=== PATIENT | female | born 1965 | race Caucasian/White ===

== ENCOUNTER 2016-06-15 12:49 | Emergency (ER) | payer MEDICARE ==
[2016-06-15 13:06] VITALS: TEMP 97.6
[2016-06-15] MEDS ORDERED: ONDANSETRON INJ 4 MG/2 ML VIAL IV ONE (13:45)
[2016-06-15] MEDS ORDERED: SODIUM CHLORIDE 0.9% 1000ML 1,000 ML ONE (16:00)
[2016-06-15] MEDS ORDERED: PROMETHAZINE TAB (ER DISP) 25 MG TAB ONE (19:33)
[2016-06-16 09:07] VITALS: BP 115/78; O2SAT 96
--- NOTE | 2016-06-26 00:45 | CT ---
History: Abdominal pain, vomiting. CT abdomen and pelvis, with contrast: Contiguous 5 mm sections are obtained from the xiphoid process through the pubis following administration of intravenous and oral contrast agents. These images were reviewed on the console as PACS was down on this day. The ordering physician received a preliminary report immediately following the study's conclusion. Air-fluid levels are noted throughout the colon consistent with diarrhea. No focal bowel wall thickening, free or loculated fluid. The appendix is surgically absent. The stomach and small bowel are not significantly distended. No radiographic pattern is present to suggest underlying obstruction. Pelvic soft tissues are well maintained. No retroperitoneal lymphadenopathy or significant abnormality. Scattered atheromatous changes throughout a normal caliber abdominal aorta. Gallbladder is surgically absent. Homogeneous enhancement in the liver and spleen. The lung bases are free of significant disease. Abdominal wall is well-maintained with minimal umbilical hernia containing only mesenteric fat. Left greater than right lower lung atelectasis or scarring. IMPRESSION: 1. Air fluid levels throughout the colon raise the question of underlying diarrhea. No focal complication or abnormality. No obstructive change. 2. Small umbilical hernia contains only mesenteric fat. Electronically signed by: Arlene Chase MD 06/22/2016 12:38 PM [employer] SALES REPRESENTATIVE
== END 2016-06-15 19:45 | disposition home or self-care (01) ==
LOC: ER 12:49
DX: R11.10 Vomiting, unspecified (principal); R19.7 Diarrhea, unspecified; F17.200 Nicotine dependence, unspecified, uncomplicated
CPT/HCPCS: 74177; 80053; 83690; 84436; 84443; 84703; 85025; J2405; J7030; Q0169

== ENCOUNTER → 2016-09-27 | Outpatient (CLI) | payer MEDICARE | LOC: GMAJ 15:01 | PROVIDERS: ATTEND Family Medicine | DX: F32.9 Major depressive disorder, single episode, unspecified (principal); I10 Essential (primary) hypertension ==

== ENCOUNTER 2017-02-28 16:26 | Inpatient (IN) | payer MEDICARE ==
--- NOTE | 2017-02-28 16:31 | HP ---
SUPERVISING PHYSICIAN: Miguel Orozco M.D. CHIEF COMPLAINT: Upper respiratory symptoms. HISTORY OF PRESENT ILLNESS: This is a 52 year-old female patient who has had approximately 3 to 4 weeks of upper respiratory type symptoms as well as seasonal allergy symptoms. She saw her primary care physician, Dr. Miguel Orozco , last week and was given Levaquin and Prednisone. She was seen in clinic again today and her condition worsened. Her oxygen saturations with walking were 82% and she was 90% on room air at rest. She had crackles at the left base. Her white count was 16,000. She has extreme weakness and fatigue as well as coughing up grayish sputum. Dr. Orozco called me for admission to the hospital. PAST MEDICAL HISTORY: 1. Gastroesophageal reflux disease. 2. Hyperlipidemia. 3. Hypertension. 4. Migraine headaches. 5. Psoriasis. 6. Depression. 7. Hemophilia. 8. Bipolar disorder. PAST SURGICAL HISTORY: 1. Tonsillectomy. 2. Bone spur removal on nose by Dr. Strauss. 3. Exploratory laparotomy for endometriosis. 4. Appendectomy. OUTPATIENT MEDICATIONS: Per the EMR and awaiting verification. ALLERGIES: ABILIFY, PENICILLIN, CODEINE. FAMILY HISTORY: Father at age 63 from cancer. Mother at age 50 from breast cancer. SOCIAL HISTORY: She is disabled. She is single. She has no children. She is a current smoker and has been smoking since age 23. She smoked 1/2 pack of cigarettes per day. She denies any ETOH or illicit drug use. REVIEW OF SYSTEMS: GENERAL: Positive for fatigue and low grade fever. Negative for weight changes. HEENT: Positive for nasal congestion. Negative for ear pain, vision changes or sore throat. RESPIRATORY: Positive for cough, shortness of breath and wheezing. Negative for hemoptysis. CARDIOVASCULAR: Negative for chest pain, palpitations or tachycardia. GASTROINTESTINAL: Negative for nausea, vomiting, diarrhea or constipation. GENITOURINARY: Negative for hematuria, dysuria or polyuria. SKIN: Negative for rashes or lesions. NEUROLOGIC: Negative for headaches, dizziness or seizures. PHYSICAL EXAMINATION: VITAL SIGNS: Temperature 98.3, pulse rate 103, blood pressure 141/86, respiratory rate 17, O2 sat is 92% on 2 liters nasal cannula. GENERAL: This is a 52 year-old obese female patient who is lying in her hospital bed. HEENT: Normocephalic and atraumatic. Pupils are equal and reactive. Oropharynx is clear. NECK: Supple without mass. RESPIRATORY: Scattered rhonchi throughout, somewhat diminished at the bases. CARDIOVASCULAR: Regular rate and rhythm. ABDOMEN: Soft, nondistended, non-tender. Bowel sounds are positive. EXTREMITIES: No cyanosis, clubbing or edema. NEUROLOGIC: She is awake, alert and oriented times three. LABORATORY: There are no labs and films to report other than those from the History of Present Illness. ASSESSMENT: 1. Left lower lobe pneumonia community-acquired in a [facility] chronic smoker with failed outpatient therapy. 2. Exacerbation of chronic obstructive pulmonary disease in a smoker. 3. Hypoxia with O2 sats at 82% while walking and at rest is 90% on room air. 4. Leukocytosis secondary to #1. 5. Gastroesophageal reflux disease. 6. Hypertension. 7. Morbid obesity. 8. Depression. 9. Bipolar disorder. 10. Hyperlipidemia. 11. History of hemophilia. PLAN: We will admit the patient to the floor. I have drawn blood cultures as well as ordered a sputum culture. We will do routine labs in the morning as well as a followup chest x-ray. She will have Xopenex breathing treatments as well as good pulmonary hygiene. I have ordered some steroids and will taper those doses tomorrow. I have started her on Azithromycin and Rocephin as well as will restart her home medications once they have been verified. We will continue to monitor the patient closely and follow as needed. Dr. Orozco is the collaborating physician available for consultation. #[id number] [facility]
[2017-02-28] MEDS ORDERED: IV SET AND CAP CHANGE INJ INJ SCH (18:00)
[2017-02-28] MEDS ORDERED: ONDANSETRON INJ 4 MG/2 ML VIAL IV PRN (18:14)
[2017-02-28] MEDS ORDERED: methylPREDNISolone SODIUM SUC 125 MG/2 ML VIAL IV ONE (18:21)
[2017-02-28] MEDS ORDERED: AZITHROMYCIN IV 500 MG VIAL IVPB ONE (18:37)
[2017-02-28] MEDS ORDERED: SODIUM CHLORIDE 0.9% 250ML 250 ML ONE (18:37)
[2017-02-28] MEDS: AZITHROMYCIN IV 500 MG in SODIUM CHLORIDE 0.9% 250ML 250 ML IVPB SCH (18:40)
[2017-02-28] MEDS: methylPREDNISolone SODIUM SUC 125 MG/2 ML VIAL IV SCH (18:42)
[2017-02-28] MEDS: LEVALBUTEROL NEBS 1.25 MG/3 ML VIAL INH SCH (19:30)
[2017-02-28] MEDS ORDERED: SODIUM CHL 0.9% 50ML MIN-BAG+ 50 ML IVPB ONE (19:46)
[2017-02-28] MEDS ORDERED: LITHIUM CARBONATE 150 MG CAP ONE (19:46)
[2017-02-28] MEDS ORDERED: cefTRIAXone SODIUM 1 GM VIAL ONE (19:46)
[2017-02-28] MEDS ORDERED: cefTRIAXone SODIUM 1 GM in SODIUM CHL 0.9% 50ML MIN-BAG+ 50 ML IVPB SCH (20:00)
[2017-02-28] MEDS: diazePAM 5 MG TAB PO PRN (20:07)
[2017-02-28] MEDS ORDERED: ONDANSETRON 4 MG TAB PO PRN (20:10)
[2017-02-28] MEDS ORDERED: LITHIUM CARBONATE 300 MG PO SCH (21:00)
[2017-02-28] MEDS: ZOLPIDEM TARTRATE 10 MG TAB PO SCH (21:02)
[2017-02-28] MEDS: SODIUM CHLORIDE 0.9% (FLUSH) 10 ML SYG IV PRN (21:03)
[2017-02-28] MEDS: cefTRIAXone SODIUM 1 GM in SODIUM CHL 0.9% 50ML MIN-BAG+ 50 ML IVPB SCH (21:03)
[2017-02-28] MEDS: guaiFENesin ER TAB 600 MG TAB PO SCH (21:03)
[2017-02-28] MEDS ORDERED: NICOTINE PATCH 21 MG TD SCH (21:30)
[2017-03-01] MEDS: SODIUM CHLORIDE 0.9% (FLUSH) 10 ML SYG IV PRN ×2 (02:03→06:30)
[2017-03-01] MEDS: methylPREDNISolone SODIUM SUC 125 MG/2 ML VIAL IV SCH ×2 (02:04→11:23)
[2017-03-01] MEDS ORDERED: NICOTINE PATCH 21 MG TD ONE (02:10)
[2017-03-01] MEDS: diazePAM 5 MG TAB PO PRN ×3 (02:17→20:45)
[2017-03-01] MEDS: HYDROcodone 5MG/APAP 325MG 1 EA TAB PO PRN ×4 (05:19→20:45)
[2017-03-01] MEDS ORDERED: PANTOPRAZOLE SODIUM IV 40 MG VIAL IV SCH (06:30)
[2017-03-01] MEDS: LEVALBUTEROL NEBS 1.25 MG/3 ML VIAL INH SCH ×3 (07:23→20:17)
[2017-03-01] MEDS ORDERED: SODIUM CHLORIDE 0.9% 50ML 50 ML ONE (07:44)
[2017-03-01] MEDS ORDERED: cefTRIAXone SODIUM 1 GM VIAL ONE ×2 (07:44→20:29)
[2017-03-01] MEDS ORDERED: HYDROcodone/APAP 5MG/217MG LIQ 10 ML UD ONE (08:20)
[2017-03-01] MEDS ORDERED: HYDROcodone 5MG/APAP 325MG 1 EA TAB ONE (08:21)
[2017-03-01] MEDS: cefTRIAXone SODIUM 1 GM in SODIUM CHL 0.9% 50ML MIN-BAG+ 50 ML IVPB SCH ×2 (08:32→20:45)
--- NOTE | 2017-03-01 08:51 | RAD ---
EXAM DESCRIPTION: Chest,2 Views CLINICAL HISTORY: 52 years Female, Pneumonia COMPARISON: 02 June 2015 TECHNIQUE: PA/lateral FINDINGS: Chronic parenchymal changes are observed in the lung bases. No acute infiltrate is seen. The heart is within range of normal. No pleural fluid is seen. Degenerative changes are seen in the thoracic spine. IMPRESSION: I see no acute cardiopulmonary pathology or significant interval change. Electronically signed by: Ebenezer Fuller MD 03/01/2017 8:50 AM CDT
[2017-03-01] MEDS: LITHIUM CARBONATE 150 MG CAP PO SCH ×2 (09:02→20:45)
[2017-03-01] MEDS: DOCUSATE SODIUM 100 MG CAP PO SCH (09:02)
[2017-03-01] MEDS: BIFIDOBACTERIUM INFANTIS 4 MG CAP PO SCH (09:03)
[2017-03-01] MEDS: NON-FORMULARY MEDICATION 1 EA MIS (Linaclotide [Linzess] 290 MCG) PO SCH (09:03)
[2017-03-01] MEDS: guaiFENesin ER TAB 600 MG TAB PO SCH ×2 (09:04→20:45)
[2017-03-01] MEDS: LISINOPRIL 10 MG TAB PO SCH (09:04)
[2017-03-01] MEDS: diazePAM 2 MG TAB PO PRN (11:23)
[2017-03-01] MEDS: NICOTINE PATCH 21 MG TD SCH (14:12)
[2017-03-01] MEDS ORDERED: GLUCAGON INJ 1 MG VIAL SUBCU PRN (14:25)
[2017-03-01] MEDS ORDERED: DEXTROSE 50% 25 GM/50 ML SYG IV PRN (14:25)
--- NOTE | 2017-03-01 14:46 | PN ---
SUPERVISING PHYSICIAN: Miguel Orozco MD DATE: 03/01/17 SUBJECTIVE: The patient is sitting up in her hospital bed. She is in no acute distress. She has no complaints of nausea, vomiting, diarrhea, constipation, shortness of breath. She continues complaints of cough and hoarseness. The patient has walked the halls several times today without any problems. OBJECTIVE: VITAL SIGNS: Afebrile. Pulse 90, but it has gone up as high as 107. Blood pressure 155/80. Respiratory rate 20. O2 saturation runs between 92% and 96% on room air. LUNGS: Essentially clear to auscultation at the apices, somewhat diminished at the bases. CARDIAC: Regular rate and rhythm. ABDOMEN: Soft, nondistended, nontender. Bowel sounds are positive. EXTREMITIES: No cyanosis, clubbing or edema. NEUROLOGIC: Awake, alert and oriented times three. LABORATORY: White count has improved to 14.4 and her electrolytes are basically within normal limits with the exception that her glucose is 263. Chest x-ray shows no acute cardiopulmonary pathology. Preliminary blood cultures are negative to date. All other labs and films have been reviewed via the EMR. ASSESSMENT: 1. Left lower lobe pneumonia, community-acquired, in a [facility] chronic smoker with failed outpatient therapy. 2. Exacerbation of chronic obstructive pulmonary disease in a smoker. 3. Hypoxia with O2 sats at 82% while walking and at rest is 90% on room air. 4. Leukocytosis secondary to #1. 5. Gastroesophageal reflux disease. 6. Hypertension. 7. Morbid obesity. 8. Depression. 9. Bipolar disorder. 10. Hyperlipidemia. PLAN: We will continue present supportive care. I have increased her Mucinex and she will continue with her aggressive pulmonary hygiene. Her chest x-ray is better and clinically she appears better. The patient has had multiple complaints about the food and about the timing of her medications, but staff have tried to be very understanding with her. She did admit to going outside to smoke yesterday and I explained to her that she cannot go outside to smoke under any circumstances. She has also pulled off her nicotine patch multiple times and asked for it to be replaced. I have explained to her that if she does not comply with the treatments and care that we have ordered, she will have to be discharged due to noncompliance. I do feel like she has clinically improved over the last 24 hours and I feel like if her white count improves, she can go home tomorrow. She will need a pulmonary consult. I have also discussed with her at length smoking cessation. She is aware that if she continues to be noncompliant, she will be discharged home. I have tapered down her steroids. She should be able to go home on a taper. I have ordered AM lab. We will continue to monitor the patient closely and follow as needed. Dr. Orozco is the collaborating physician and available for consultation. #[id number] [facility]
[2017-03-01] MEDS ORDERED: SODIUM CHLORIDE 0.9% 250ML 250 ML ONE (16:32)
[2017-03-01] MEDS ORDERED: AZITHROMYCIN IV 500 MG VIAL IVPB ONE (16:32)
[2017-03-01] MEDS: INSULIN LISPRO 100 UNITS/ML PEN SUBCU SCH ×2 (16:33→21:01)
[2017-03-01] MEDS: AZITHROMYCIN IV 500 MG in SODIUM CHLORIDE 0.9% 250ML 250 ML IVPB SCH (18:30)
[2017-03-01] MEDS ORDERED: SODIUM CHL 0.9% 50ML MIN-BAG+ 50 ML IVPB ONE (20:28)
[2017-03-01] MEDS: methylPREDNISolone SODIUM SUC 40 MG/ML VIAL IV SCH (20:41)
[2017-03-01] MEDS: ZOLPIDEM TARTRATE 10 MG TAB PO SCH (20:45)
[2017-03-01] MEDS: PRAVASTATIN SODIUM 20 MG TAB PO SCH (20:59)
[2017-03-01] MEDS: MAGNESIUM HYDROXIDE 30 ML UD PO PRN (21:45)
[2017-03-02] MEDS: diazePAM 5 MG TAB PO PRN ×3 (03:24→20:36)
[2017-03-02] MEDS: PANTOPRAZOLE SODIUM TAB 40 MG PO SCH (06:23)
[2017-03-02] MEDS ORDERED: PANTOPRAZOLE SODIUM TAB 40 MG PO SCH (06:30)
[2017-03-02] MEDS: INSULIN LISPRO 100 UNITS/ML PEN SUBCU SCH ×4 (07:25→21:51)
[2017-03-02] MEDS: LEVALBUTEROL NEBS 1.25 MG/3 ML VIAL INH SCH ×3 (08:01→20:04)
[2017-03-02] MEDS ORDERED: SODIUM CHL 0.9% 50ML MIN-BAG+ 50 ML IVPB ONE ×2 (08:28→19:16)
[2017-03-02] MEDS ORDERED: cefTRIAXone SODIUM 1 GM VIAL ONE ×2 (08:29→19:17)
[2017-03-02] MEDS: methylPREDNISolone SODIUM SUC 40 MG/ML VIAL IV SCH ×2 (09:02→21:17)
[2017-03-02] MEDS: cefTRIAXone SODIUM 1 GM in SODIUM CHL 0.9% 50ML MIN-BAG+ 50 ML IVPB SCH ×2 (09:02→21:27)
[2017-03-02] MEDS: guaiFENesin ER TAB 600 MG TAB PO SCH ×2 (09:03→20:36)
[2017-03-02] MEDS: LITHIUM CARBONATE 150 MG CAP PO SCH ×2 (09:03→20:35)
[2017-03-02] MEDS: BIFIDOBACTERIUM INFANTIS 4 MG CAP PO SCH (09:03)
[2017-03-02] MEDS: LISINOPRIL 10 MG TAB PO SCH (09:03)
[2017-03-02] MEDS: DOCUSATE SODIUM 100 MG CAP PO SCH (09:03)
[2017-03-02] MEDS: NON-FORMULARY MEDICATION 1 EA MIS (Linaclotide [Linzess] 290 MCG) PO SCH (09:04)
[2017-03-02] MEDS: NICOTINE PATCH 21 MG TD SCH (09:17)
[2017-03-02] MEDS: FLUTICASONE PROP 0.05% NASAL 16 GM BTTL BNAS SCH (11:18)
[2017-03-02] MEDS: MAGNESIUM HYDROXIDE 30 ML UD PO PRN (14:20)
[2017-03-02] MEDS: HYDROcodone 5MG/APAP 325MG 1 EA TAB PO PRN (14:36)
[2017-03-02] MEDS ORDERED: HALOPERIDOL LACTATE INJ 5 MG/ML VIAL IM PRN (15:40)
[2017-03-02] MEDS ORDERED: HYDROcodone 5MG/APAP 325MG 1 EA TAB PO PRN (15:53)
[2017-03-02] MEDS ORDERED: ENOXAPARIN SODIUM 40 MG/0.4 ML SYG SUBCU SCH (16:00)
[2017-03-02] MEDS: VARENICLINE 0.5 MG TAB PO SCH (16:24)
[2017-03-02] MEDS ORDERED: NON-FORMULARY MEDICATION 1 EA MIS PO ONE (16:33)
--- NOTE | 2017-03-02 17:10 | PN ---
DATE: 03/02/17 SUPERVISING PHYSICIAN: Miguel Orozco M.D. SUBJECTIVE: The patient is lying in her hospital bed. She is asleep. She awakens easily. She complains of some wheezing and coughing as well as some weakness but otherwise she is feeling some better. She is very worried about going home without a plan in place to stop smoking. She asked if she could try Chantix. We discussed the increased risk of suicidality. She would like to start it while in the hospital. OBJECTIVE: She is afebrile, heart rate 96, blood pressure 145/77, respiratory rate 16, O2 sat is 96% on room air. RESPIRATORY: Essentially clear to auscultation bilaterally. She has a few scattered rhonchi in the apices but very minimal. CARDIAC: Regular rate and rhythm. ABDOMEN: Soft, nondistended, non-tender. Bowel sounds are positive. EXTREMITIES: No cyanosis, clubbing or edema. NEUROLOGIC: She is awake, alert and oriented times three. LABORATORY: WBCs have elevated to 21.2 with hemoglobin and hematocrit of 14.4 and 43.6. Neutrophils have decreased slightly to 84.4%. Sodium 135, potassium is slightly high at 5.1 with chloride 102, carbon dioxide 26, calcium 9.4, magnesium 2.5. BUN 26, creatinine 1.07. Glucose has run 173 to 191. [place] level is less than 0.3. Preliminary blood cultures show no growth after 24 hours. All other labs and films have been reviewed via the EMR. ASSESSMENT: 1. 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 2. Exacerbation of chronic obstructive pulmonary disease in a smoker. 3. Hypoxia with O2 saturations at 82% while walking on admission. It has now improved to the mid 90s on room air. 4. Leukocytosis secondary to #1 that is slightly worsened but most likely due to IV steroids. 5. Gastroesophageal reflux disease. 6. Hypertension. 7. Morbid obesity. 8. Depression. 9. Bipolar disorder. 10. Hyperlipidemia. PLAN: We will continue present supportive care. I have decreased her steroids and she will start oral steroids in the morning. I have ordered an ambulation study for today and tomorrow to make sure her O2 sats remain above 90. She will continue her pulmonary hygiene. Earlier during her admission, she had showed some signs of jett and I called her psychiatrist, Dr. Adams in [place] especially due to her low [place] level. He felt like that her [place] levels would stabilize after 4 to 5 days of scheduled dosing. He recommended that she get 5 mg of Haldol IV to help with the jett symptoms until her [place] level stabilized. She also was very concerned about smoking cessation and she would really like to quit since she has not had a cigarette since the day of admission. She inquired about Chantix and we discussed issues of suicidality. She understands the risk. She asked that she be started on it here in the hospital so we can monitor her symptoms. She will need close followup on discharge with Dr. Kerns at [facility]. I have ordered basic metabolic panel for in the morning as well as a CBC. Hopefully her WBCs will decrease and she can be discharged home on a steroid taper as well as a continuing dose of a cephalosporin. She should be finished with her Azithromycin by tomorrow. She will continue with her pulmonary hygiene. We will continue to monitor the patient closely and followup as needed. Dr. Orozco is the collaborating physician available for consultation. #[id number] [facility]
[2017-03-02] MEDS ORDERED: AZITHROMYCIN IV 500 MG VIAL IVPB ONE (18:26)
[2017-03-02] MEDS ORDERED: SODIUM CHLORIDE 0.9% 250ML 250 ML ONE (18:26)
[2017-03-02] MEDS: AZITHROMYCIN IV 500 MG in SODIUM CHLORIDE 0.9% 250ML 250 ML IVPB SCH (18:28)
[2017-03-02] MEDS: PRAVASTATIN SODIUM 20 MG TAB PO SCH (20:36)
[2017-03-02] MEDS: ZOLPIDEM TARTRATE 10 MG TAB PO SCH (20:36)
[2017-03-02] MEDS: SODIUM CHLORIDE 0.9% (FLUSH) 10 ML SYG IV PRN (21:17)
[2017-03-02] MEDS: diazePAM 2 MG TAB PO PRN (21:53)
[2017-03-03] MEDS: diazePAM 5 MG TAB PO PRN (06:07)
[2017-03-03] MEDS: PANTOPRAZOLE SODIUM TAB 40 MG PO SCH (06:08)
--- NOTE | 2017-03-03 06:24 | RAD ---
EXAM DESCRIPTION: Chest,2 Views CLINICAL HISTORY: pna COMPARISON: 03/01/2017 FINDINGS: Frontal and lateral views of the chest. The cardiomediastinal silhouette has normal size and contour. Curvilinear left basilar opacity likely represents discoid atelectasis. Minimal right midlung discoid atelectasis. No consolidation, pneumothorax, pleural effusion. No displaced rib fractures identified. Upper abdominal soft tissues are unremarkable. IMPRESSION: 1. No acute pulmonary process identified. No significant interval change. Electronically signed by: Yury Thomas 03/03/2017 6:22 AM CDT
[2017-03-03] MEDS ORDERED: SODIUM CHL 0.9% 50ML MIN-BAG+ 50 ML IVPB ONE (07:36)
[2017-03-03] MEDS ORDERED: cefTRIAXone SODIUM 1 GM VIAL ONE (07:38)
[2017-03-03] MEDS: INSULIN LISPRO 100 UNITS/ML PEN SUBCU SCH (07:48)
[2017-03-03] MEDS: LEVALBUTEROL NEBS 1.25 MG/3 ML VIAL INH SCH (08:12)
[2017-03-03] MEDS: cefTRIAXone SODIUM 1 GM in SODIUM CHL 0.9% 50ML MIN-BAG+ 50 ML IVPB SCH (08:47)
[2017-03-03] MEDS: DOCUSATE SODIUM 100 MG CAP PO SCH (08:51)
[2017-03-03] MEDS: VARENICLINE 0.5 MG TAB PO SCH (08:51)
[2017-03-03] MEDS: SODIUM CHLORIDE 0.9% (FLUSH) 10 ML SYG IV PRN (08:51)
[2017-03-03] MEDS: FLUTICASONE PROP 0.05% NASAL 16 GM BTTL BNAS SCH (08:52)
[2017-03-03] MEDS: NICOTINE PATCH 21 MG TD SCH (08:52)
[2017-03-03] MEDS: LITHIUM CARBONATE 150 MG CAP PO SCH (08:52)
[2017-03-03] MEDS: guaiFENesin ER TAB 600 MG TAB PO SCH (08:52)
[2017-03-03] MEDS: LISINOPRIL 10 MG TAB PO SCH (08:52)
[2017-03-03] MEDS: BIFIDOBACTERIUM INFANTIS 4 MG CAP PO SCH (08:52)
[2017-03-03] MEDS ORDERED: predniSONE 20 MG TAB PO SCH (09:00)
[2017-03-03] MEDS ORDERED: ENOXAPARIN SODIUM 40 MG/0.4 ML SYG SUBCU SCH (09:00)
[2017-03-03] MEDS: NON-FORMULARY MEDICATION 1 EA MIS (Linaclotide [Linzess] 290 MCG) PO SCH (09:23)
[2017-03-03 11:01] VITALS: BP 156/88; TEMP 97.5; O2SAT 99
--- NOTE | 2017-03-03 19:39 | DS ---
SUPERVISING PHYSICIAN: Miguel Orozco M.D. DISCHARGE DIAGNOSIS: 1. 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 Preliminary blood cultures were negative and were unable to collect a sputum culture. 2. Exacerbation of chronic obstructive pulmonary disease in a current smoker. 3. Hypoxia with O2 saturations of 82 while walking on admission. She is now improved to the mid 90s on room air with exertion. 4. Leukocytosis secondary to number 1 that has improved, continues to be slightly elevated most likely due to her steroids. 5. Gastroesophageal reflux disease. 6. Hypertension. 7. Morbid obesity. 8. Depression. 9. Bipolar disorder. 10. Hyperlipidemia. 11. Poor medical compliance. HISTORY OF PRESENT ILLNESS: This is a 52 year-old female patient who had initially had 3 to 4 weeks of upper respiratory type symptoms as well as seasonal allergy symptoms. She saw her primary care physician, Dr. Miguel Orozco , over a week ago and was given Levaquin and Medrol Dosepak. She had a followup appointment with Dr. Orozco and her condition had worsened. With exertion, her oxygen saturations dropped into the low 80s and at rest she was 90 % on room air. She had crackles in the left base. Her initial white count was 16,000. She had some fatigue as well as coughing up chavis sputum. X-ray at the clinic showed left lower lobe pneumonia. Dr. Orozco called me for admission to the hospital. HOSPITAL COURSE: The patient was admitted to the hospital. She was given Rocephin and Azithromycin antibiotics as well as Solu-Medrol. Her Solu-Medrol was tapered. Her white count did go up but her chest x-ray improved. Two days ago her chest x-ray was clear as well as today. There were no acute cardiopulmonary processes noted. Her chemistries are basically within normal limits although her potassium is slightly elevated at 5.1. She was given insulin coverage due to her elevated blood sugars and those were most likely due to her steroid dosing. She received percussion and IPPB as well as aggressive pulmonary hygiene. She is tapered off of her IV steroids and is on oral steroids today. She did report a yeast infection and was given a dose of Diflucan. She requested that Chantix to be started on her as she would like to quit smoking. We discussed the adverse effects, including increased suicidality and she understood the risks, and agreed to take it. Her [place] level was low at less than 0.3. I called Dr. Adams, her psychiatrist in [place]. He reported that when her [place] level is low it is usually due to her noncompliance and requested that she be continued on her present dose of [place] at 300 mg b.i.d., and her levels should become therapeutic within 4 to 5 days. If needed, we could give her some Haldol. At this point, I do not believe any Haldol has been given. She has walked in the hallways. She had an ambulation study that showed 93% at rest on room air. Her saturations went up to 95% during ambulation on room air and then after completion of her ambulation study her oxygen saturation at its lowest was 93% on room air. She will be discharged home today in stable condition. DISCHARGE PLAN: The patient will be discharged home in stable condition. She is to resume her previous medications. I have started her on 7 days of Cefdinir antibiotics. I have also given her a steroid taper. She has also been given a starting pack of Chantix as well as some information on smoking cessation. Again, she has been encouraged to stop smoking. She is to followup with her primary care physician in the next 1 to 2 weeks. She is also to followup with Dr. Adams in regards to her low [place] level. She is to return to the hospital or followup with her primary care physician for any further problems or complications. Dr. Orozco is the collaborating physician available for consultation. #[id number] [facility]
== END 2017-03-03 11:25 | disposition home or self-care (01) | DRG 190 ==
LOC: MS 16:26
PROVIDERS: ADMIT Nurse Practitioner Acute Care; ATTEND Nurse Practitioner Acute Care
DX: J44.0 Chronic obstructive pulmonary disease with (acute) lower respiratory infection (principal); J18.9 Pneumonia, unspecified organism; D66 Hereditary factor VIII deficiency; Z68.41 Body mass index [BMI] 40.0-44.9, adult; J44.1 Chronic obstructive pulmonary disease with (acute) exacerbation; R09.02 Hypoxemia; K21.9 Gastro-esophageal reflux disease without esophagitis; I10 Essential (primary) hypertension; E66.01 Morbid (severe) obesity due to excess calories; F31.9 Bipolar disorder, unspecified; E78.5 Hyperlipidemia, unspecified; F17.210 Nicotine dependence, cigarettes, uncomplicated; Z88.0 Allergy status to penicillin; Z88.5 Allergy status to narcotic agent; Z88.8 Allergy status to other drugs, medicaments and biological substances; Z91.19 Patient's noncompliance with other medical treatment and regimen

== ENCOUNTER 2017-10-04 19:27 | Inpatient (IN) | payer MEDICARE ==
--- NOTE | 2017-10-04 20:08 | ED.PDOC ---
History of Present Illness - General Chief Complaint: General Stated Complaint: Cough and Congestion Time Seen by Provider: 10/04/17 19:58 Source: patient Exam Limitations: no limitations - History of Present Illness Initial Comments: Pearl Contreras 52 y/o female came to ER with productive cough for the last one week and nasal congestion.She was seen here last week and dx with copd exacerbation;no fever ,chills,chest pains,nausea/vomiting.Smoker-one pack per week.No ill contact stated has history of copd.Has history of copd,bipolar. Timing/Duration: other - see hpi Severity: moderate Improving Factors: nothing Worsening Factors: nothing Associated Symptoms: other - see hpi Allergies/Adverse Reactions: Allergies Codeine Allergy (Verified 10/01/17 12:21) Penicillins Allergy (Verified 10/01/17 12:21) Aripiprazole [From [facility]] Adverse Reaction (Verified 10/01/17 12:21) Home Medications: Ambulatory Orders Lisinopril 20 mg PO DAILY 05/25/12 [place] Carbonate 300 mg PO BID 05/25/12 Omeprazole 40 mg PO DAILY 07/31/14 Pravastatin Sodium [Pravachol] 20 mg PO DAILY 07/31/14 Zolpidem Tartrate 10 mg PO BEDTIME 07/31/14 Diazepam [Valium] 4 mg PO PRN PRN 02/28/17 Docusate Sodium [Stool Softener] 100 mg PO DAILY 02/28/17 Linaclotide [Linzess] 290 mcg PO DAILY 02/28/17 Ondansetron [Zofran Odt] 4 mg PO BID PRN 02/28/17 Azithromycin 250 mg PO DAILY 10/01/17 Docusate Sodium [Colace Cap] 100 mg PO DAILY 10/01/17 Fexofenadine HCl [Mucinex Allergy] 180 mg PO DAILY 10/01/17 Lurasidone HCl [Latuda] 20 mg PO DAILY 10/01/17 Triamcinolone Acetonide (Nasal [Nasacort Allergy 24Hr] 55 mcg NA DAILY 10/01/17 predniSONE 20 mg PO BID #10 tab 10/01/17 Review of Systems - Review of Systems Constitutional: States: no symptoms reported EENTM: States: see HPI, nose congestion Respiratory: States: see HPI, cough Cardiology: States: no symptoms reported Neurological: States: emotional problems All other Systems: Reviewed and Negative, No Change from Baseline Past Medical History (General) - Patient Medical History Hx Seizures: No Hx Stroke: No Hx Dementia: No Hx Asthma: No Hx of COPD: Yes Hx Cardiac Disorders: No Hx Congestive Heart Failure: No Hx Pacemaker: No Hx Hypertension: Yes Hx Thyroid Disease: No Hx Diabetes: No Hx Gastroesophageal Reflux: Yes Hx Renal Disease: No Hx Cancer: No Hx of HIV: No Hx Hepatitis C: No Hx MRSA: No Hx Other PMH: Yes - bipolar Surgical History: appendectomy, cholecystectomy, other - Vaccination History Hx Tetanus, Diphtheria Vaccination: No Hx Influenza Vaccination: No Hx Pneumococcal Vaccination: No Immunizations Up to Date: No - Social History Hx Tobacco Use: Yes - 1 pack per week Hx Chewing Tobacco Use: No Hx Alcohol Use: Yes - Occasional Hx Substance Use: No Hx Substance Use Treatment: No Hx Depression: Yes - bipolar Feels Threatened In Home Enviroment: No Feels Threatened In a Relationship: No Hx Physical Abuse: No Hx Emotional Abuse: No Hx Suspected Abuse: No - Activities of Daily Living Hospice Agency (if applicable):: None - Female History Patient is a Female of Child Bearing Age (10 -59 yrs old): No Hx Last Menstrual Period: 09/29/11 Patient : No - Triage Comment ED Triage Comment: Pt states she has had cough and congestion x1 week and has been seen by multiple providers and prescribed three different types of steroids. She also states that she feels dehydrated and like she is drowning in her on mucous. Pt said, "I feel like I am struggling to take my next breath. " Family Medical History - Family History Mother Family History: Unknown Living Status: Hx Family Asthma: No Hx Family Congestive Heart Failure: No Hx Family Hypertension: Yes - parents Hx Family Stroke: Yes Hx Cardiac Disease: No Hx Family Diabetes: Yes Hx Family Cancer: Yes - lung-dad;breast-mom Physical Exam - Physical Exam General Appearance: Alert, Comfortable, No apparent distress Eye Exam: bilateral normal Ears, Nose, Throat: hearing grossly normal, normal ENT inspection, nasal congestion - left nostril Neck: full range of motion, supple Respiratory: lungs clear, no respiratory distress, crackles, other - speaks in full snetences Cardiovascular/Chest: regular rate, rhythm, no murmur Peripheral Pulses: radial,right: 2+, radial,left: 2+ Gastrointestinal/Abdominal: non tender, soft, no organomegaly Back Exam: no CVA tenderness, no vertebral tenderness Neurologic: alert, oriented x 3 Skin Exam: normal color, warm/dry Progress - Progress Progress: 10/04/17 20:11 Vital Signs - 8 hr 10/04/17 10/04/17 19:32 19:51 Temperature 98.9 F Pulse Rate [ 98 H 98 H Monitor] Respiratory 20 20 Rate Blood Pressure 111/72 [Left Arm] O2 Sat by Pulse 92 L Oximetry - Results/Orders Results/Orders: 10/04/17 20:12 SVN/Updraft Therapy .PRN URINALYSIS Stat 10/04/17 20:13 SVN/Updraft Therapy .ONCE 10/04/17 20:14 Oxymetazoline Nasal [place] [Afrin Nasal [place]] 2 spray BNAS BID PRN 10/04/17 21:45 levoFLOXacin 500MG IV [Levaquin 500MG IV] 500 mg Premix Bag 1 bag IVPB ONCE 10/05/17 09:00 [facility] Daily Laboratory Results - last 24 hr 10/04/17 10/04/17 21:00 21:00 WBC 12.6 H RBC 5.17 Hgb 15.9 Hct 47.4 H MCV 91.7 MCH 30.8 MCHC 33.6 RDW 14.7 H Plt Count 261 MPV 9.0 Absolute Neuts (auto) 10.00 H Absolute Lymphs (auto) 1.90 Absolute Monos (auto) 0.60 Absolute Eos (auto) 0.00 Absolute Basos (auto) 0.10 Neutrophils % 79.2 H Lymphocytes % 15.2 L Monocytes % 5.0 Eosinophils % 0.1 L Basophils % 0.5 PT 10.5 INR 0.900 PTT (SP) 27.8 Sodium 134 L Potassium 4.5 Chloride 101 Carbon Dioxide 30 Anion Gap 7.5 L BUN 18 Creatinine 1.17 BUN/Creatinine Ratio 15.4 Random Glucose 190 H Serum Osmolality 275.2 Lactic Acid 1.9 Calcium 9.1 Magnesium 2.1 Total Bilirubin 0.6 Direct Bilirubin 0.1 Indirect Bilirubin 0.5 AST 18 ALT 17 Alkaline Phosphatase 85 Creatine Kinase 45 CK-MB (CK-2) 4.3 CK-MB (CK-2) % Not Reportable Troponin I < 0.02 Serum Total Protein 6.8 Albumin 3.8 - EKG/XRAY/CT XRAY: chest - new fluid/atelectasis right lung CT Ordered: No CT Interpretation Call Back: No Departure - Departure Clinical Impression: Pneumonia Qualifiers: Pneumonia type: due to unspecified organism Laterality: right Lung location: unspecified part of lung Qualified Code(s): J18.9 - Pneumonia, unspecified organism Time of Disposition: 22:09 Disposition: Admit Patient Condition: Fair Departure Forms: Patient Portal Self Enrollment Home Medications: Ambulatory Orders Lisinopril 20 mg PO DAILY 05/25/12 [place] Carbonate 300 mg PO BID 05/25/12 Omeprazole 40 mg PO DAILY 07/31/14 Pravastatin Sodium [Pravachol] 20 mg PO DAILY 07/31/14 Zolpidem Tartrate 10 mg PO BEDTIME 07/31/14 Diazepam [Valium] 4 mg PO PRN PRN 02/28/17 Docusate Sodium [Stool Softener] 100 mg PO DAILY 02/28/17 Linaclotide [Linzess] 290 mcg PO DAILY 02/28/17 Ondansetron [Zofran Odt] 4 mg PO BID PRN 02/28/17 Azithromycin 250 mg PO DAILY 10/01/17 Docusate Sodium [Colace Cap] 100 mg PO DAILY 10/01/17 Fexofenadine HCl [Mucinex Allergy] 180 mg PO DAILY 10/01/17 Lurasidone HCl [Latuda] 20 mg PO DAILY 10/01/17 Triamcinolone Acetonide (Nasal [Nasacort Allergy 24Hr] 55 mcg NA DAILY 10/01/17 predniSONE 20 mg PO BID #10 tab 10/01/17 Decision To Admit - Decistion To Admit Decision to Admit Reason: Admit from ER Decision to Admit Date: 10/04/17 - D/W Anjali Parks -DENISE/hospitalist Decision to Admit Time: 22:07
[2017-10-04] MEDS ORDERED: IPRATROPIUM/ALBUTEROL 3 ML VIAL NEB ONE ×2 (20:12→22:05)
[2017-10-04] MEDS ORDERED: OXYMETAZOLINE NASAL SPRAY 15 ML BTTL BNAS PRN (20:14)
[2017-10-04] MEDS ORDERED: SODIUM CHLORIDE 0.9% 500ML 500 ML IVS ONE (20:14)
--- NOTE | 2017-10-04 20:47 | RAD ---
EXAM: XR Chest, 2 Views CLINICAL HISTORY: The patient is 52 years old and is Female; cough TECHNIQUE: Frontal and lateral views of the chest. COMPARISON: Prior study from 10/01/2017, 3 days earlier. FINDINGS: LUNGS: There is new fluid or atelectasis involving the RIGHT minor fissure. There is continued lingular stellate density similar to the prior study. PLEURAL SPACE: No pleural effusions. No pneumothorax. HEART: Unremarkable. No cardiomegaly. MEDIASTINUM: Unremarkable. BONES/JOINTS: Unremarkable .No acute fracture noted. UPPER ABDOMEN: There is mild elevation of the RIGHT hemidiaphragm. OTHER FINDINGS: Follow-up radiography is recommended to make sure these changes regress. IMPRESSION: There is new fluid or atelectasis involving the RIGHT minor fissure. There is continued lingular stellate density similar to the prior study. RECOMMENDATIONS: Follow-up radiography is recommended to make sure these changes regress. Electronically signed by: Rubén Key MD 10/04/2017 8:46 PM CDT
[2017-10-04] MEDS ORDERED: levoFLOXacin 500MG IV 500 MG in PREMIX BAG 1 BAG IVPB ONE (21:45)
[2017-10-04] MEDS ORDERED: methylPREDNISolone SODIUM SUC 125 MG/2 ML VIAL IV ONE (21:54)
[2017-10-04] MEDS ORDERED: IPRATROPIUM/ALBUTEROL 3 ML VIAL NEB PRN (22:30)
[2017-10-04] MEDS ORDERED: ALBUTEROL SULFATE 2.5 MG/3 ML VIAL NEB PRN (22:50)
[2017-10-04] MEDS ORDERED: SODIUM CHLORIDE 0.9% (FLUSH) 10 ML SYG IV PRN (22:50)
[2017-10-04] MEDS ORDERED: levoFLOXacin 500MG IV 100 ML IVPB ONE (22:51)
[2017-10-04] MEDS ORDERED: IV SET AND CAP CHANGE INJ INJ SCH (23:00)
[2017-10-04] MEDS ORDERED: LITHIUM CARBONATE 300 MG PO SCH (23:00)
[2017-10-04] MEDS ORDERED: PANTOPRAZOLE SODIUM IV 40 MG VIAL IV SCH (23:00)
[2017-10-04] MEDS ORDERED: diazePAM 2 MG TAB PO PRN (23:00)
[2017-10-04] MEDS ORDERED: ZOLPIDEM TARTRATE 10 MG TAB PO PRN (23:02)
[2017-10-04] MEDS ORDERED: ONDANSETRON INJ 4 MG/2 ML VIAL IV PRN (23:02)
[2017-10-04] MEDS ORDERED: HALOPERIDOL LACTATE INJ 5 MG/ML VIAL IM PRN (23:06)
[2017-10-04] MEDS ORDERED: LITHIUM CARBONATE 150 MG CAP ONE (23:33)
[2017-10-05] MEDS: ENOXAPARIN SODIUM 40 MG/0.4 ML SYG SUBCU SCH ×4 (00:01→21:04)
[2017-10-05] MEDS: methylPREDNISolone SODIUM SUC 125 MG/2 ML VIAL IV SCH ×2 (06:30→14:22)
--- NOTE | 2017-10-05 07:58 | RAD ---
EXAM DESCRIPTION: Chest,2 Views CLINICAL HISTORY: Pneumonia COMPARISON: October 04, 2017 FINDINGS: Two-view chest x-ray shows cardiomediastinal silhouette and pulmonary vasculature to be within normal limits. The lungs are mildly hypoaerated. Increased interstitial thickening is seen left lower lobe and right perihilar region with continued fluid in the horizontal fissure similar to increased from previous.. Costophrenic angles are sharp. Moderate disc degenerative changes of the spine are seen. IMPRESSION: Continued patchy interstitial changes in the right perihilar and left lower lobe suggesting pneumonia versus atelectasis with continued fluid in the right horizontal fissure. Electronically signed by: Scar Bradley MD 10/05/2017 7:57 AM CDT
[2017-10-05] MEDS ORDERED: LURASIDONE HCL 20 MG PO SCH (09:00)
[2017-10-05] MEDS: IPRATROPIUM/ALBUTEROL 3 ML VIAL INH SCH ×4 (09:08→20:08)
[2017-10-05] MEDS: LITHIUM CARBONATE 150 MG CAP PO SCH ×2 (10:00→20:59)
[2017-10-05] MEDS: SODIUM CHLORIDE 0.9% (FLUSH) 10 ML SYG IV SCH ×2 (10:00→21:00)
--- NOTE | 2017-10-05 10:11 | HP ---
SUPERVISING PHYSICIAN: Miguel Orozco M.D. CHIEF COMPLAINT: Coughing and shortness of breath. HISTORY OF PRESENT ILLNESS: This is a 52-year-old female patient who came to the Emergency Room with a productive cough for almost 2 weeks as well as congestion. She has had shortness of breath. She was actually seen in the Emergency Room on 10/01/17 for the same symptoms. At that time, her chest x- ray was essentially clear. Her chest x-ray today shows a right middle lobe pneumonia. She also has a significant history of smoking and chronic obstructive pulmonary disease with multiple acute exacerbations. Her vital signs showed a temperature of 98.9 with a heart rate 98, blood pressure 111/72, respiratory rate 20. O2 saturation was 91% on room air. Laboratory showed WBC 12.6 with a left shift. Hemoglobin 15.9, hematocrit 47.4. Sodium 134, potassium 4.5, chloride 101, carbon dioxide 30, BUN 18, creatinine 1.17, glucose 190. Liver enzymes were basically within normal limits. She had a negative urinalysis. Blood cultures were drawn. She was given some Solu- Medrol as well as some Levaquin. She was given multiple breathing treatments and I was called for hospital admission. PAST MEDICAL HISTORY: 1. Gastroesophageal reflux disease. 2. Hyperlipidemia. 3. Hypertension. 4. Migraine headaches. 5. Psoriasis. 6. Depression. 7. Hemophilia. 8. Bipolar disorder. PAST SURGICAL HISTORY: 1. Tonsillectomy. 2. Bone spur removal on nose by Dr. Strauss. 3. Exploratory laparotomy for endometriosis. 4. Appendectomy. OUTPATIENT MEDICATIONS: Per the EMR and awaiting verification. ALLERGIES: ABILIFY, PENICILLIN, CODEINE. FAMILY HISTORY: Cancer and breast cancer. SOCIAL HISTORY: She is disabled. She is single. She has no children. She is a current smoker and has been smoking since age 23. She says she smokes about one pack of cigarettes per day, but has an extensive history of tobacco abuse. She denies any ETOH or illicit drug use. REVIEW OF SYSTEMS: GENERAL: Positive for fatigue and subjective fever. Negative for weight changes. HEENT: Positive for nasal congestion. Negative for ear pain, vision changes or sore throat. RESPIRATORY: Positive for cough, shortness of breath and wheezing. Negative for hemoptysis. CARDIOVASCULAR: Negative for chest pain, palpitations or tachycardia. GASTROINTESTINAL: Negative for nausea, vomiting, diarrhea or constipation. GENITOURINARY: Negative for hematuria, dysuria or polyuria. SKIN: Negative for rashes or lesions. NEUROLOGIC: Negative for headaches, dizziness or seizures. PHYSICAL EXAMINATION: VITAL SIGNS: Temperature 98. Heart rate 82. Blood pressure 97/63. Respiratory rate 20. O2 saturation 91% on room air. GENERAL: This is a 52-year-old obese female patient who is lying in her hospital bed. She is in mild respiratory distress. HEENT: Normocephalic and atraumatic. Pupils are equal and reactive. Oropharynx is clear. NECK: Supple without mass. There is no discernible jugular venous distention. RESPIRATORY: Coarse b responsible throughout, diminished at the bases. There are a few expiratory wheezes in bilateral apices. CHEST: There is equal rise and fall of the chest with inspiration and expiration. CARDIOVASCULAR: Regular rate and rhythm. ABDOMEN: Soft, nondistended, nontender. Bowel sounds are positive. EXTREMITIES: No cyanosis, clubbing or edema. NEUROLOGIC: She is awake, alert and oriented times three. LABORATORY: Labs and films are per the History of Present Illness. ASSESSMENT: 1. Acute exacerbation of chronic obstructive pulmonary disease in a chronic smoker. 2. Right middle lobe pneumonia with a worsening chest x-ray since 10/01/17. 3. Coughing, shortness of breath seen in the Emergency Room on with the same symptoms. 4. Gastroesophageal reflux disease. 5. Hypertension. 6. Morbid obesity. 7. Depression. 8. Bipolar disorder. 9. Hyperlipidemia. 10. History of hemophilia. PLAN: We will admit the patient to the hospital. I have initiated pneumonia guidelines. We will do aggressive pulmonary hygiene. I have also ordered a sputum culture. We will continue on Levaquin. We will monitor cultures as they become available. She will be on a proton pump inhibitor for ulcer prophylaxis as well as Lovenox for DVT prophylaxis. I have restarted her home medications. We will continue to monitor the patient closely and follow as needed. Dr. Orozco is the collaborating physician and available for consultation. #[id number] [facility]
--- NOTE | 2017-10-05 16:52 | PN ---
DATE: SUPERVISING PHYSICIAN: Miguel Orozco M.D. SUBJECTIVE: The patient is lying in her hospital bed. She is doing a breathing treatment. She is in no acute distress. Continues to have some shortness of breath with exertion but denies chest pain, nausea or vomiting. OBJECTIVE: VITAL SIGNS: She is afebrile, heart rate 95, blood pressure 122/73, respiratory rate 20, O2 sat is 90% on room air. RESPIRATORY: Diminished breath sounds throughout. She does have some mild expiratory wheezing in the apices, somewhat improved from last night. CARDIAC: Regular rate and rhythm. GASTROINTESTINAL: Abdomen is soft, nondistended, non-tender. Bowel sounds are positive. EXTREMITIES: No cyanosis, clubbing or edema. NEUROLOGIC: She is awake, alert and oriented times three. LABORATORY: WBCs have improved to 10.5 but still has a left shift with 86.8% neutrophils. Hemoglobin 16.3 with hematocrit 48.6. Sodium 139, potassium 5.2, chloride 102, carbon dioxide 31, glucose 206. Liver functions are within normal limits. Preliminary blood cultures are negative to date. Chest x-ray shows continued patchy interstitial changes in the right perihilar and left lower lobe suggesting pneumonia versus atelectasis with continued fluid in the right horizontal fissure. All other labs and films have been reviewed via the EMR. ASSESSMENT: 1. Acute exacerbation of chronic obstructive pulmonary disease in a chronic smoker. 2. Right middle lobe and left lower lobe pneumonia with a worsening chest x- ray since 10/01/17. 3. Coughing, shortness of breath seen in the Emergency Room on with the same symptoms. 4. Gastroesophageal reflux disease. 5. Hypertension. 6. Morbid obesity. 7. Depression. 8. Bipolar disorder. 9. Hyperlipidemia. 10. History of hemophilia. PLAN: We will continue present supportive care. I have titrated down her steroids. Will continue to encourage good pulmonary hygiene. I have also discussed with her smoking cessation. I will also continue her on her Levaquin. Monitor her cultures as they become available. I have encouraged her to walk frequently in the hallways. Hopefully we can discharge her in the next [address] Orozco is the collaborating physician available for consultation. #[id number] [facility]
[2017-10-05] MEDS ORDERED: PANTOPRAZOLE SODIUM TAB 40 MG PO ONE (20:34)
[2017-10-05] MEDS ORDERED: levoFLOXacin 750MG IV 750 MG in PREMIX BAG 1 BAG IVPB SCH (21:00)
[2017-10-05] MEDS ORDERED: methylPREDNISolone SODIUM SUC 40 MG/ML VIAL IV SCH (22:00)
[2017-10-05 22:24] VITALS: BP 114/74; TEMP 97.4; O2SAT 96
[2017-10-06] MEDS ORDERED: PANTOPRAZOLE SODIUM TAB 40 MG PO SCH (06:30)
[2017-10-06] MEDS ORDERED: predniSONE 20 MG TAB PO SCH (09:00)
--- NOTE | 2017-10-06 21:01 | DS ---
SUPERVISING PHYSICIAN: Miguel Orozco M.D. DISCHARGE DIAGNOSIS: 1. Acute exacerbation of chronic obstructive pulmonary disease in a chronic smoker. 2. Right middle lobe and left lower lobe pneumonia with a worsening chest x- ray since 10/01/17. 3. Coughing, shortness of breath seen in the Emergency Room on with the same symptoms. 4. Gastroesophageal reflux disease. 5. Hypertension. 6. Morbid obesity. 7. Depression. 8. Bipolar disorder. 9. Hyperlipidemia. 10. History of hemophilia. HISTORY OF PRESENT ILLNESS: This is a 52-year-old female patient who came to the Emergency Room with a productive cough for almost 2 weeks as well as some chest congestion. She has also had shortness of breath. She was actually seen in the Emergency Room on 10/01/17 for the same symptoms. At that time, her chest x-ray was essentially clear. Her chest x-ray on admission showed right middle lobe pneumonia. She also has a significant history of smoking and chronic obstructive pulmonary disease exacerbations. Her vital signs were stable. Her white count was elevated at 12,600 with a left shift. Blood cultures were drawn. She was also given some Solu-Medrol and Levaquin in the Emergency Room and she was admitted to the hospital. HOSPITAL COURSE: The patient was continued on Levaquin as well as breathing treatments and tapered IV steroids. Aggressive pulmonary hygiene was done. Her white count normalized to 10.5 this morning but she continued to have a left shift with neutrophils of 86.8%. Her potassium was slightly elevated at 5.2. On the evening of discharge, she decided to go AMA. The charge nurse attempted to get her to stay as an inpatient, but she decided to leave the hospital against medical advice. DISCHARGE PLAN: The patient left the hospital against medical advice. It was recommended that she followup with her primary care physician. I have sent her home on some Levaquin, a Medrol Dosepak as well as some albuterol breathing treatments. DISCHARGE MEDICATIONS: 1. Gu-Win. 2. Lisinopril. 3. Ambien. 4. Pravachol. 5. Docusate sodium. 6. Valium. 7. Linzess. 8. Zofran. 9. Triamcinolone nasal. 10. Latuda. 11. Mucinex allergy. 12. Colace. 13. Omeprazole. 14. Albuterol. 15. Levaquin. 16. Medrol Dosepak. Dr. Orozco is the collaborating physician available for consultation. #[id number] [facility]
== END 2017-10-05 22:30 | disposition left against medical advice (07) | DRG 193 ==
LOC: ER 19:27 → MS 22:36 → OBSVTOIN 22:36
PROVIDERS: ADMIT Nurse Practitioner Acute Care; ATTEND Nurse Practitioner Acute Care
DX: J18.9 Pneumonia, unspecified organism (principal); D66 Hereditary factor VIII deficiency; J44.0 Chronic obstructive pulmonary disease with (acute) lower respiratory infection; J44.1 Chronic obstructive pulmonary disease with (acute) exacerbation; Z68.41 Body mass index [BMI] 40.0-44.9, adult; K21.9 Gastro-esophageal reflux disease without esophagitis; I10 Essential (primary) hypertension; E66.01 Morbid (severe) obesity due to excess calories; F31.9 Bipolar disorder, unspecified; E78.5 Hyperlipidemia, unspecified; F17.210 Nicotine dependence, cigarettes, uncomplicated; L40.9 Psoriasis, unspecified; Z88.0 Allergy status to penicillin; Z88.5 Allergy status to narcotic agent; Z88.8 Allergy status to other drugs, medicaments and biological substances; Z79.52 Long term (current) use of systemic steroids; Z79.899 Other long term (current) drug therapy

== ENCOUNTER → 2019-05-21 | Outpatient (CLI) | payer MEDICARE | LOC: LAB.O 14:11 | PROVIDERS: ATTEND Psychiatry & Neurology Psychiatry | DX: F31.81 Bipolar II disorder (principal) ==

== ENCOUNTER 2020-03-20 23:40 | Emergency (ER) | payer MEDICARE ==
[2020-03-20] MEDS ORDERED: ONDANSETRON INJ 4 MG/2 ML VIAL IV ONE (23:46)
[2020-03-20] MEDS ORDERED: SODIUM CHLORIDE 0.9% (FLUSH) 10 ML SYG IV PRN (23:46)
[2020-03-20] MEDS ORDERED: SODIUM CHLORIDE 0.9% 1000ML 1,000 ML IVS PRN (23:46)
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
[2020-03-21 01:12] VITALS: O2SAT 95
--- NOTE | 2020-03-21 01:46 | RAD ---
EXAM: XR Chest, 1 View CLINICAL HISTORY: The patient is 55 years old and is Female; hypoxia TECHNIQUE: Frontal view of the chest. COMPARISON: Chest x-ray 10/05/2017. FINDINGS: Limitations: Evaluation limited due to technique/positioning. Lungs: Diffuse hazy opacification of the lungs bilaterally which may represent mild diffuse airspace disease or artifact. Fluid in the horizontal fissure. Low lung volumes. No focal consolidation. Pleural space: Unremarkable. No pneumothorax. Heart: Unremarkable. No cardiomegaly. Mediastinum: Unremarkable. Bones/joints: Unremarkable. IMPRESSION: 1. Diffuse hazy opacification of the lungs bilaterally which may represent mild diffuse airspace disease or artifact. 2. Low lung volumes. 3. No focal consolidation. Electronically signed by: Jacob Multani MD 03/21/2020 1:44 AM [facility]
[2020-03-21 02:00] VITALS: BP 151/77; TEMP 97.9
[2020-03-21] MEDS ORDERED: ONDANSETRON ODT (ER DISP) 8 MG TAB PO ONE ×2 (02:02→02:05)
== END 2020-03-21 02:11 | disposition home or self-care (01) ==
LOC: ER 23:40
DX: R11.2 Nausea with vomiting, unspecified (principal); E86.0 Dehydration; R00.0 Tachycardia, unspecified; F31.9 Bipolar disorder, unspecified; K21.9 Gastro-esophageal reflux disease without esophagitis; I10 Essential (primary) hypertension; J44.9 Chronic obstructive pulmonary disease, unspecified; F17.210 Nicotine dependence, cigarettes, uncomplicated; Z20.828 Contact with and (suspected) exposure to other viral communicable diseases; Z79.899 Other long term (current) drug therapy; Z88.5 Allergy status to narcotic agent; Z88.0 Allergy status to penicillin; Z88.8 Allergy status to other drugs, medicaments and biological substances
CPT/HCPCS: 71045; 80048; 80076; 80320; 83690; 84484; 85025; 87635; 93005; J2405; J7030